=== PATIENT | male | born 1940 | race Caucasian/White ===

== ENCOUNTER 2024-10-23 12:05 | Inpatient (IN) | payer MEDICARE, SELFPAY ==
[2024-10-23] VITALS (11 sets, daily range): BP systolic 112–149; BP diastolic 56–85; PULSE 61–76; BMI 22.6; BMI 21.5
--- NOTE | 2024-10-23 07:55 | ED.GENMED ---
History of Present Illness
General
Chief Complaint: Rectal Bleeding
Source: patient
Exam Limitations: none
Time Seen by Provider: 10/23/24 07:54
Nursing documentation reviewed up to this point in time: agreed with
History of Present Illness
History of Present Illness:
Note:
CHIEF COMPLAINT(S)
Rectal bleeding
HISTORY OF PRESENT ILLNESS
The patient is an 84-year-old male who reports experiencing significant rectal bleeding earlier today, primarily upon awakening, with an associated history of intermittent minor rectal bleeding for years. The bleeding today was more substantial than
in previous instances. The patient denies any active bleeding currently, noting only a trace of blood was visible earlier. He reports no pain associated with the bleeding. The patient recalls having a bowel movement prior to the onset of todays
bleeding, but it is not clear if the bleeding was directly related to the bowel movement. The patient awakened to the bleeding episode.
The patient has a history of atrial fibrillation and had been on anticoagulation medication, although he reports withholding the medication on his own recently. He does not recall having atrial fibrillation after his last medical follow-ups. The
patient mentioned a history of a heart attack occurring in 2018. He denies any discomfort beyond a sensation of pressure during todays examination and reports no significant findings from similar past medical episodes.
PHYSICAL EXAM
General: Alert, no acute distress.
Skin: Warm, dry.
Head: Normocephalic, atraumatic.
Neck: Supple, trachea midline.
Eye Ears, nose, mouth and throat: Oral mucosa moist.
Cardiovascular: Normal peripheral perfusion, No edema.
Respiratory: Respirations are non-labored.
Gastrointestinal: Abdomen nondistended. RECTAL: guaiac po brown stool
Back: Normal range of motion, Normal alignment.
Musculoskeletal: Normal range of motion, normal strength.
Neurological: Alert and oriented to person, place, time, and situation, No focal neurological deficit observed.
Psychiatric: Cooperative, appropriate mood & affect.
PLAN
The plan is to admit the patient to the hospital for overnight due to the recent significant rectal bleeding episode. Monitoring will include watching for any further bleeding and evaluating blood count levels. The patients anticoagulation
medication, likely either Eliquis or Xarelto, will be withheld for the time being to prevent any exacerbation of bleeding. Further evaluation and diagnostic testing will be dependent on the patients status and any changes in his condition overnight.
DIFFERENTIAL DIAGNOSIS
The Differential Diagnosis includes, in no particular order and is not limited to:
1. Hemorrhoids
2. Diverticulosis
3. Gastrointestinal malignancy
4. Anal fissures
5. Colorectal polyps
6. Upper gastrointestinal bleeding
7. Ischemic colitis
8. Anticoagulation-related bleeding
9. Rectal varices
10. Inflammatory bowel disease (e.g., Crohns disease, ulcerative colitis)
CARE-UPDATE
10/23/24 - 08:26
The patients hemoglobin level has decreased from 12.9 in 2020 to 10.7, indicating a possible exacerbation of bleeding. Xarelto will be held to mitigate bleeding risk. The patient will be admitted to hospitalist for further monitoring and supportive
care. The etiology of rectal bleeding remains unclear, though diverticulosis is considered a possibility.
Disposition:
SUMMARY OF ENCOUNTER
The patient, an 84-year-old male, presented to the emergency department with a complaint of significant rectal bleeding that occurred earlier today, with a history of intermittent minor rectal bleeding over the years. The patient was evaluated for
potential sources of bleeding. Observational admission was decided upon to monitor for any recurrence or exacerbation, in light of his history of anticoagulation therapy, which he withheld.
DISPOSITION
Admit
ASSESSMENT
Significant rectal bleeding with a possibility of exacerbation due to prior anticoagulation therapy.
PLAN
Admit the patient for overnight observation to monitor for further bleeding episodes and evaluate blood count levels. Anticoagulation medication will be withheld to prevent exacerbation of bleeding. Further evaluation and diagnostic testing will
depend on changes in the patients condition overnight.
INDEPENDENT REVIEW OF LABS AND INTERPRETATION OF TESTS
My independent review reveals that the patients hemoglobin level has decreased from 12.9 in 2020 to 10.7, suggesting possible exacerbation of bleeding.
MEDICATION RECONCILIATION
The decision was made to withhold the patients anticoagulation medication, likely rivaroxaban (Xarelto), to reduce the risk of further bleeding.
MEDICAL DECISION MAKING
- Number and Complexity of Problems Addressed: Chronic conditions affecting care include the patient�s history of atrial fibrillation, previous heart attack, and the recent episode of rectal bleeding.
- Differential Diagnosis: Hemorrhoids, Diverticulosis, Gastrointestinal malignancy, Anal fissures, Colorectal polyps, Upper gastrointestinal bleeding, Ischemic colitis, Anticoagulation-related bleeding, Rectal varices, Inflammatory bowel disease.
- Data:
- Category 1: Reviewed the patients hemoglobin levels indicating a decrease associated with bleeding.
- Category 2: Not applicable.
- Category 3: Discussion with the admitting team for hospital observation.
- Risk: Hospital admission is required for monitoring due to risk associated with prior anticoagulation therapy and significant bleeding history.
DIAGNOSIS
Additional blood use (ICD-10: K92.1)
Anticoagulation therapy complication (ICD-10: T45.515A)
History of atrial fibrillation (ICD-10: I48.91)
Past History
Past History
ED Past Medical History: CAD and Other (bph)
ED Past Surgical History: Cardiac and Orthopedic
Social History
Tobacco: Former smoker
Alcohol: None
Personal:
Living: with family
Phy Exam
Physical Exam
Physical Exam:
.
Course
Orders/Labs/Results
Orders:
Orders
10/23/24 07:54
Cardiac Monitoring- Treatment ONCE
IV Insert/Care/Rem.- Treatment PRN
Pulse Ox/cont/shift [RESP] Stat
Quantity: 1
10/23/24 08:03
Type+Screen Urgent
Basic Metabolic Panel Urgent
Complete Blood Count/With Diff Urgent
PTT Urgent
Prothrombin Time Urgent
Abnormal Lab Results
10/23/24
08:03
RBC 4.34 L 10^6/uL
(4.70-6.10)
Hgb 10.7 L g/dL
(13.0-18.0)
Hct 34.3 L %
(39.0-52.0)
MCV 79.0 L fL
(80.0-94.0)
MCH 24.7 L pg
(27.0-31.0)
MCHC 31.2 L g/dL
(33.0-37.0)
RDW 17.6 H %
(11.5-14.5)
Absolute Lymphs (auto) 1.0 L 10^3/uL
(1.2-3.4)
Lymphocytes % 19.0 L %
(20.5-51.1)
PT 22.1 H Sec
(11.4-14.6)
APTT 38.5 H Sec
(23.4-35.0)
Chloride 110 H mmol/L
(98-107)
Glucose 111 H mg/dl
(70-99)
10/23/24 08:03
10/23/24 08:03
Vital Signs
Initial and Last Documented VS:
Initial Vital Signs
Temp Pulse Resp BP Pulse Ox
97.7 F 58 16 149/85 99
10/23/24 07:21 10/23/24 07:21 10/23/24 07:21 10/23/24 07:21 10/23/24 07:21
Last Documented Vital Signs
Temp Pulse Resp BP Pulse Ox
97.7 F 58 16 149/85 97
10/23/24 07:21 10/23/24 07:21 10/23/24 07:21 10/23/24 07:21 10/23/24 08:00
*Pulse Oximetry
SaO2: 99
Oxygen Mode of Delivery: Room air
Patient hypoxic: no
*Critical Care Note
Total Time (30-74mins, 75-104mins- exclusive of procedures): Not Applicable
ED Attending Note
-
Portions of this chart may have been created with voice recognition software.� Occasional wrong word or��sound alike� substitutions may have occurred due to the inherent limitations of voice recognition software.
Discharge Plan
Departure
Patient Disposition: Admit
Date of Disposition: 10/23/24
Time of Disposition: 08:32
Admit to: Telemetry
Presentation/result/management discussed w/ accepting MD/DO: Hospitalist
Patient with high blood pressure during this ER visit?: Yes
Condition: Fair
Discharge Problem:
Rectal bleeding
Prescriptions:
No Action
multivitamin [Yaf-Wthlql-Zyrxj] 1 EACH tablet
1 tab PO DAILY
ascorbic acid (vitamin C) [Vitamin C] 1,000 MG tablet
1,000 mg PO DAILY
docosahexaenoic acid-epa 1 CAP capsule
1 cap PO DAILY
coenzyme K38-ybtmowy E 1 CAP capsule
1 cap PO DAILY
saw-vit E-sod ntu-keo-atry-pyg [Prostate Health] 1 EACH tablet
1 tab PO DAILY
atorvastatin 80 MG tablet
80 mg PO QPM Qty: 30 3RF
carvedilol 6.25 MG tablet
6.25 mg PO BID Qty: 60 3RF
clopidogrel 75 MG tablet
75 mg PO DAILY Qty: 30 3RF
pantoprazole 40 MG tablet,delayed release (DR/EC)
40 mg PO DAILY Qty: 30 0RF
rivaroxaban [Xarelto] 15 MG tablet
15 mg PO QPM Qty: 30 2RF
Rx Instructions:
start at dinner time on 06/24/17
nitroglycerin 0.4 MG tablet, sublingual
0.4 mg sublingual [id number] PRN (Reason: chest pain ) 30 Days Qty: 25 0RF
Patient Comments:
took 2 doses about 30 mins apart 12/22/17
sacubitril-valsartan [Entresto] 1 EACH tablet
1 ea PO DAILY
Patient Comments:
verify dose with
furosemide [Lasix] 20 MG tablet
20 mg PO DAILY 30 Days Qty: 30 5RF
Referrals:
UNKNOWN - PT DOES,NOT KNOW [Unknown Provider]
Interventions
Interventions:
*Risk Screen - Suicide Last Done: 10/23/24 07:19
*General Assessment Last Done: 10/23/24 07:19
*Neglect/Abuse Screening Last Done: 10/23/24 07:19
ED- Pulmonary Assessment Last Done: 10/23/24 08:00
Discharge Date and Time
Print Language: [place] CITIZ[place]
[2024-10-23 08:16] LABS: Hematocrit 34.3 % (39.0-52.0); Hemoglobin 10.7 g/dL (13.0-18.0); Mean Corp Hgb Conc. 31.2 g/dL (33.0-37.0); Mean Corpuscular Volume 79.0 fL (80.0-94.0); Nucleated Red Blood Cells % 0 % (-); Platelet Count 214 10^3/uL (130-400); Red Cell Dist. Width 17.6 % (11.5-14.5)
[2024-10-23 08:34] LABS: INR 1.91; PT 22.1 Sec (11.4-14.6)
[2024-10-23 08:35] LABS: APTT 38.5 Sec (23.4-35.0)
[2024-10-23 08:40] LABS: Blood Urea Nitrogen 19 mg/dl (9-20); Calcium 9.5 mg/dl (8.4-10.2); Carbon Dioxide 27 mmol/L (22-30); Chloride 110 mmol/L (98-107); Estimated Creatinine Clearance 49 ml/min; Glucose 111 mg/dl (70-99); Potassium 4.3 mmol/L (3.5-5.1); Sodium 140 mmol/L (135-145); eGFR > 60.00
--- NOTE | 2024-10-23 10:32 | HPS.HSE ---
Family Physician
-
Family Physician: Lexie Rueda MD
Chief Complaint
-
Bright red blood per rectum
History of Present Illness
This is an 84-year-old male with past medical history of CAD/SC s/p stents (May 2017), paroxysmal atrial fibrillation on Xarelto, ischemic cardiomyopathy, hyperlipidemia, colonic polyps who presents to the ED complaining of significant bright red
rectal bleeding upon awakening this morning at 6am.� The patient reports he has had an history of intermittent minor bright red rectal bleeding ongoing for 20 years.� He reports today's bleeding was more voluminous than previous episodes.He does not
follow GI as an outpatient, but reports he had a sigmoidoscopy done in 2018. � At bedside, he denies active bleeding episode.� He reports the bleeding episode resolved on its own this morning.� He reports he had a bowel movement last night before
bed, but denied blood in the stool. He states he last took his Xarelto dosage last night. He denies symptomatic chest pain, shortness of breath.�
Upon presentation to the ED, blood pressure 149/75, pulse 58, temperature 97.7, respiratory 16, O2 sat 99% on room air. �Laboratory showed hemoglobin 10.7, hematocrit 34.3, PT 22.1, PTT 38.5, INR 1.91, electrolytes normal.
Medical History
Past Medical History
Past Medical History: Reports Other (CAD s/p stents, paroxysmal atrial fibrillation, hyperlipidemia, ischemic cardiomyopathy, osteoarthritis)
Past Surgical History: Reports Orthopedic and Other (Cardiac catheterization, hernia repair)
Social History
Tobacco: Former Smoker
Alcohol: None
Drug: None
Personal:
Living: With Family
Family History
Family History: Not pertinent
Allergies / Home Medications
Allergies reflects when Allergies were last updated in [facility].
Home Medications with original date entered in [facility]
Allergy/Medication List:
Allergies
Allergy/AdvReac Type Severity Reaction Status Date / Time
No Known Allergies Allergy Verified 10/23/24 07:19
Home Medications
ascorbic acid (vitamin C) 1,000 mg tablet (Vitamin C) 1,000 mg PO DAILY 06/19/17
coenzyme V30-bfjnwxr E 100 mg-100 unit capsule 1 cap PO DAILY 06/19/17
multivitamin (Rnn-Lltejd-Vipjt tablet) 1 tab PO DAILY 06/19/17
saw palm 160 mg-vit E 100 unit-selen 100 nmj-tuqn-vlyekp-pygeum tablet (Prostate Health) 1 tab PO DAILY 06/19/17
atorvastatin 80 mg tablet 80 mg PO QPM ##30 06/23/17
carvedilol 6.25 mg tablet 6.25 mg PO BID ##60 06/23/17
clopidogrel 75 mg tablet 75 mg PO DAILY ##30 06/23/17
nitroglycerin 0.4 mg sublingual tablet 0.4 mg sublingual [id number] PRN chest pain 30 days #25 tabs 06/23/17
pantoprazole 40 mg tablet,delayed release 40 mg PO DAILY ##30 06/23/17
rivaroxaban 15 mg tablet (Xarelto) 15 mg PO QPM #30 tabs 06/23/17
sacubitril 49 mg-valsartan 51 mg tablet (Entresto) 1 ea PO DAILY 12/23/17
furosemide 20 mg tablet (Lasix) 20 mg PO DAILY 30 days #30 tabs 12/25/17
Review of Systems
-
A 12 point ROS was completed and negative except as noted: Yes
Constitutional: Reports Other (All review of systems obtained and negative except as documented in HPI)
Physical Exam
Vital Signs
Vital Signs
Temp Pulse Resp BP Pulse Ox
97.7 F 54 15 147/75 99
10/23/24 07:21 10/23/24 10:00 10/23/24 10:00 10/23/24 10:00 10/23/24 10:00
Physical Exam
General: Well Developed, Well Nourished and No Apparent Distress
Respiratory: Clear
Cardiac: S1/S2 and Regular Rhythm
GI: Soft, Non Tender, Non Distended and Normal Bowel Sounds
Musculoskeletal: No Edema
Skin: Warm and Dry
Neuro: Awake, Alert, Oriented and AO x 3
Psych: Calm
Laboratory Results
-
10/23/24 08:03
10/23/24 08:03
Laboratory Results
PT 22.1 Sec (11.4-14.6) H 10/23/24 08:03
INR 1.91 10/23/24 08:03
APTT 38.5 Sec (23.4-35.0) H 10/23/24 08:03
Impression/Plan
-
Assessment/plan
#Acute on chronic lower GI bleed likely secondary to diverticulosis vs colonic polyps vs anticoagulated related bleeding
-Denies overt bleeding at bedside
-Monitor H&H Q12
-IV pantoprazole
-Keep NPO
-Type and screen, Consent in chart
-GI consult
-Hold Xarelto
#Acute on chronic anemia secondary to GI bleed
-Denies chest pain, shortness of breath, palpitation
-Monitor H&H
-Check iron studies
-Transfuse for Hgb less than 8
#Paroxysmal atrial fibrillation
-Continue rate control with Coreg
-Hold anticoagulation with Xarelto
#CAD s/p stents
-Continue statin, hold clopidogrel
#Ischemic cardiomyopathy
#CHF
-Continue Coreg, Entresto
-Continue home Lasix
#Hyperlipidemia
-Continue statin
CODE STATUS DNR
DVT prophylaxis SCDs for now
--- NOTE | 2024-10-23 11:14 | W.PN.UPDATE ---
Update Note
Progress Note Update
I personally performed a history and physical exam of the patient and discussed management with the resident. I reviewed the resident's note and agree with the documented findings and plan of care HPI/CC.
84-year-old male presents with an episode of bright red blood per rectum this morning. Denies abdominal pain. Was in his usual state of health prior to the episode. No acute complaints at this moment.
147/75, 54, 15, 97.7 �F, 99% RA
Gen: NAD, AAOx3.
Eyes: EOMI, PERRLA, no scleral icterus.
Neck: supple.
CV: RRR, +S1/S2, no m/r/g.
Resp: CTAB, no rales, wheezes, or rhonchi.
Abd: +BS, soft, NT, ND
Skin: No rashes.
Neuro: CN 2-12 intact, non-focal.
Psych: Normal mood and affect.
Allergies
Allergy/AdvReac Type Severity Reaction Status Date / Time
No Known Allergies Allergy Verified 10/23/24 07:19
Home Medications
ascorbic acid (vitamin C) 1,000 mg tablet (Vitamin C) 1,000 mg PO DAILY 06/19/17
coenzyme C68-fnghidq E 100 mg-100 unit capsule 1 cap PO DAILY 06/19/17
multivitamin (Cpu-Ucasce-Evafw tablet) 1 tab PO DAILY 06/19/17
saw palm 160 mg-vit E 100 unit-selen 100 deg-zubu-wildni-pygeum tablet (Prostate Health) 1 tab PO DAILY 06/19/17
atorvastatin 80 mg tablet 80 mg PO QPM ##30 06/23/17
carvedilol 6.25 mg tablet 6.25 mg PO BID ##60 06/23/17
clopidogrel 75 mg tablet 75 mg PO DAILY ##30 06/23/17
nitroglycerin 0.4 mg sublingual tablet 0.4 mg sublingual [id number] PRN chest pain 30 days #25 tabs 06/23/17
pantoprazole 40 mg tablet,delayed release 40 mg PO DAILY ##30 06/23/17
rivaroxaban 15 mg tablet (Xarelto) 15 mg PO QPM #30 tabs 06/23/17
sacubitril 49 mg-valsartan 51 mg tablet (Entresto) 1 ea PO DAILY 12/23/17
furosemide 20 mg tablet (Lasix) 20 mg PO DAILY 30 days #30 tabs 12/25/17
Lab Results
10/23/24 10/23/24
08:03 10:13
WBC 5.4
RBC 4.34 L
Hgb 10.7 L
Hct 34.3 L
MCV 79.0 L
MCH 24.7 L
MCHC 31.2 L
RDW 17.6 H
Plt Count 214
MPV 9.8
Abs Immat Gran (auto) 0.0
Absolute Neuts (auto) 3.7
Absolute Lymphs (auto) 1.0 L
Absolute Monos (auto) 0.4
Absolute Eos (auto) 0.3
Absolute Basos (auto) 0.1
Immature Gran % 0.2
Neutrophils % 68.1
Lymphocytes % 19.0 L
Monocytes % 7.2
Eosinophils % 4.6
Basophils % 0.9
Nucleated RBC % 0
PT 22.1 H
INR 1.91
APTT 38.5 H
Sodium 140
Potassium 4.3
Chloride 110 H
Carbon Dioxide 27
BUN 19
Creatinine 1.0
Estimated Creat Clear 49
eGFR > 60.00
Glucose 111 H
Calcium 9.5
Blood Type A POS
Blood Type Confirm A POS
Antibody Screen Negative
Acute blood loss anemia due to LGIB:
-Exacerbated by Xarelto and Plavix, hold both
-NPO for now
-Type and screen sent, will obtain consent for blood products
-2 large bore IVs
-OK to recheck Hb this evening and tomorrow AM unless pt has recurrent bleeding before this evening
-if recurrent bleeding, check CTA A/P
-c/s GI
Other problems:
CAD/OR s/p stents (May 2017): Holding Plavix with GIB. Cont statin/BB
CHF (unknown type): cont Entresto/BB/Lasix
PAF: holding Xarelto, cont BB
HLD: cont statin
h/o colonic polyps
DNR/SCDs
--- NOTE | 2024-10-23 11:35 | CM ---
CM reviewed chart and met with pt and bedside in ED. Lives with in ranch style home, [address].
Independent in ADLs, personal care and ambulation at baseline, no assistive devices. Still drives.
Confirms prescription coverage.
No hx VN or SNF.
PCP: Lexie uReda
Pharmacy: [facility]
Anticipate discharge home, CM will continue to follow for any discharge planning needs.
[2024-10-23 11:47] LABS: Reticulocyte Count 1.0 % (0.4-2.8)
[2024-10-23 11:53] LABS: Iron 28 ug/dl (49-181)
[2024-10-23 12:03] LABS: Total Iron Binding Capacity 358 ug/dl (261-462)
[2024-10-23 12:29] LABS: Ferritin 7.0 ng/ml (17.9-464.0)
--- NOTE | 2024-10-23 14:14 | CON.GI ---
Consultation
-
Date/Time Consultation Requested: 10/23/24 11:43am
Date/Time Consultation Performed: 10/23/24 2:14pm
Requesting Provider: Karishma Lopez
Performing Provider: Stephen Terrell
Reason for Consultation: Rectal bleeding
Medical History
Chief Complaint / HPI
Chief Complaint: Rectal bleeding
History of Present Illness:
Patient is an 84-year-old male who presents with rectal bleeding. He has noted off-and-on bleeding per rectum over the years but the amount he saw today was significant with clots. He denies any abdominal pain, diarrhea, change in bowel habits,
weight loss. He was admitted to the hospital in 2018 for acute coronary syndrome and had stents placed. During that admission he had rectal bleeding which was evaluated with a flexible sigmoidoscopy. He had several large polyps found and was
recommended to have them resected when he was able to hold his Plavix safely. Since then he decided against pursuing resection given his age and lack of symptoms other than the episodic bleeding. He is on xarelto and took last dose 10/22 pm.
Plavix is listed on his hospital chart but he has a list of current meds that does not include plavix.
Past Medical History
Past Medical History: Arrhythmias (atrial fibrillation) and CAD
Past Surgical History: Other (hernia)
Social History
Tobacco: Former Smoker
Alcohol: None
Family History
Family History: Reviewed & Not Pertinent
Allergies / Home Medications
Allergy/AdvReac Type Severity Reaction Status Date / Time
No Known Allergies Allergy Verified 10/23/24 07:19
�Medication �Instructions �Recorded
ascorbic acid (vitamin C) 1,000 mg 1,000 mg PO DAILY 06/19/17
tablet (Vitamin C)
coenzyme P52-vwextet E 100 mg-100 1 cap PO DAILY 06/19/17
unit capsule
multivitamin (Luv-Dynhcf-Afkhg 1 tab PO DAILY 06/19/17
tablet)
saw palm 160 mg-vit E 100 1 tab PO DAILY 06/19/17
unit-selen 100
fyi-zlbo-odzmra-pygeum tablet
(Prostate Health)
atorvastatin 80 mg tablet 80 mg PO QPM ##30 06/23/17
carvedilol 6.25 mg tablet 6.25 mg PO BID ##60 06/23/17
clopidogrel 75 mg tablet 75 mg PO DAILY ##30 06/23/17
nitroglycerin 0.4 mg sublingual 0.4 mg sublingual [id number] PRN 06/23/17
tablet chest pain 30 days #25 tabs
pantoprazole 40 mg tablet,delayed 40 mg PO DAILY ##30 06/23/17
release
rivaroxaban 15 mg tablet (Xarelto) 15 mg PO QPM #30 tabs 06/23/17
sacubitril 49 mg-valsartan 51 mg 1 ea PO DAILY 12/23/17
tablet (Entresto)
furosemide 20 mg tablet (Lasix) 20 mg PO DAILY 30 days #30 tabs 12/25/17
Review of Systems
-
All other systems: A 12 pt ROS was Negative except as stated above in HPI
Vital Signs
Temp Pulse Resp BP Pulse Ox
97.7 F 55 16 142/79 99
10/23/24 07:21 10/23/24 13:30 10/23/24 13:30 10/23/24 13:00 10/23/24 13:30
Physical Exam
Exam
General: No Apparent Distress
HEENT: Normocephalic and Atraumatic
Respiratory: Non Labored Respirations
GI: Soft, Non Tender and Non Distended
Rectal: Brown and Hem Positive
Results
WBC 5.4 10^3/uL (4.8-10.8) 10/23/24 08:03
Hgb 10.7 g/dL (13.0-18.0) L 10/23/24 08:03
Hct 34.3 % (39.0-52.0) L 10/23/24 08:03
MCV 79.0 fL (80.0-94.0) L 10/23/24 08:03
Plt Count 214 10^3/uL (130-400) 10/23/24 08:03
Absolute Neuts (auto) 3.7 10^3/uL (1.4-6.5) 10/23/24 08:03
PT 22.1 Sec (11.4-14.6) H 10/23/24 08:03
INR 1.91 10/23/24 08:03
APTT 38.5 Sec (23.4-35.0) H 10/23/24 08:03
Sodium 140 mmol/L (135-145) 10/23/24 08:03
Potassium 4.3 mmol/L (3.5-5.1) 10/23/24 08:03
Chloride 110 mmol/L (98-107) H 10/23/24 08:03
Carbon Dioxide 27 mmol/L (22-30) 10/23/24 08:03
BUN 19 mg/dl (9-20) 10/23/24 08:03
Creatinine 1.0 mg/dL (0.7-1.3) 10/23/24 08:03
Calcium 9.5 mg/dl (8.4-10.2) 10/23/24 08:03
Diagnostic Image Results:
Prior GI Procedures:
EGD:
Colonoscopy:
Assessment / Plan
-
Summary: 84yo male presents with significant rectal bleeding with history of intermittent rectal bleeding over the years. He is on xarelto for afib, last dose 10/22 pm. He had AMI in 2018 requiring stent. During that admission had rectal bleeding
and flex sig showed: 8mm polyp @30cm, 25-30mm polyp @28cm, 25-30mm polyp @15cm, 6mm rectal polyp, hemorrhoids. He was recommended to have colonoscopy to resect polyps when he could safely hold plavix. He never returned to f/u for colonoscopy
since he was asymptomatic and did not wish to pursue at his age.
Impression:
Rectal bleeding
Large rectosigmoid polyps on flex sig 2018. Polyps at 15cm and 28cm from anus were friable and likely source for bleeding at that time.
Afib on Xarelto, last dose 8/23pm
CAD/stent in 2018. Not on plavix currently
Recommendations:
Rectal bleeding is likely from the large rectosigmoid polyps at 15cm and 28cm from the anus on flex sig in 2018
I asked if pt would get surgery if these turned out to be cancerous since it has been over 7 years- he thinks probably not, but would like to pursue colonoscopy to determine source of bleeding
Hold xarelto
Plan colonoscopy Thursday after 48 hour wash out
OK for clears for now
-
-
Thank you for consultation and allowing me to participate in the patient's care. Please call the wildlife control agent GI physician during the after hours with any questions or concerns.
[2024-10-23] MEDS: NSS (PRESERVATIVE FREE) 10 ML IV (14:18)
[2024-10-23] MEDS: PROTONIX IV 40 MG IV (14:19)
[2024-10-23] MEDS: LIPITOR 80 MG PO (17:32)
[2024-10-23 18:08] LABS: Hematocrit 32.6 % (39.0-52.0); Hemoglobin 10.1 g/dL (13.0-18.0)
--- NOTE | 2024-10-23 18:23 | W.PN.UPDATE ---
Update Note
Progress Note Update
Verified with patient if he takes Entresto at home. Per daughter (who is a nurse here at ),'unsure if patient takes medication at home but would go home to check medication pile'. Daughter returned reporting she did not find bottle of Entresto.
Patient's primary supervisor irrigation is Dr Damon. Reviewed outpatient [facility] records and progress notes, No mention of Entresto. Most recent visit 12/17/2023. At this time will hold Entresto until full clarification in the AM.
Also, patient DOES NOT take Plavix at home. Will d/c order
[2024-10-23] MEDS: COREG 6.25 MG PO (20:25)
[2024-10-24 03:40] VITALS: BP 115/71; BP 119/71; BP 130/70; PULSE 58; PULSE 67; PULSE 73
--- NOTE | 2024-10-24 06:47 | W.PN.HOSP.TC ---
Addendum entered and electronically signed by Domenico Pham MD 10/24/24 20:55:
Attending Addendum-
I saw and evaluated the patient. I reviewed the resident�s note and agree with findings and plan as documented in the resident�s note. Sub: Denies having BM's. No complaints. States he feels good and is ready to get out of here. Full 12 point ROS
reviewed and negative except as documented Exam: Vitals reviewed in chart GEN-NAD heart RRR lungs clear abd soft NT ND pos BS LE no edema
Plan:
#Acute on chronic lower GI bleed
- no overt bleeding
- H&H stable
- cont IV pantoprazole
- Keep NPOpMN
- Type and screen, Consent in chart
- appreciate GI input- colonoscopy in am
- Hold Xarelto
- h/o polyps
#DARWIN
-Monitor H&H
-start IV iron
-Transfuse for Hgb less than 7
#Paroxysmal atrial fibrillation
-Continue rate control with Coreg
-Hold anticoagulation with Xarelto
#CAD s/p stents
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
#Ischemic cardiomyopathy
#HFrEF
- not in AE
- Echo- 03/2023- EF 30-35%
- Continue Coreg
- d/w primary cards re starting GDMT on DC
- Continue home Lasix
#Hyperlipidemia
-Continue atorvastatin
CODE STATUS DNR
DVT prophylaxis SCDs for now
ACP
Patient consented to discuss, was alone, time spent explanation of advance directives, changes in health status, patient�s health care wishes if the patient becomes unable to make health decisions, goals of care, code status, and prognosis 'i dont
want any heroic stuff'- 16 minutes
Time spent coordinating care, review of plan of care with resident, personally reviewed previous records in EMR, med rec, labs, radiology, d/w nursing, total time documented is exclusive of any additional time listed that was spent in advance care
planning discussion -�51 minutes
Original Note:
Today's Communication/Plan
-
Continue IV Protonix, continue clear liquid diet, watch for any stools, iron supplementation
Assessment / Plan
Assessment / Plan
Assessment:
84-year-old male with a past medical history of CAD/PR status post stents, paroxysmal A-fib on Xarelto, ischemic cardiomyopathy, hyperlipidemia, and colonic polyps presented to the ED due to significant bright red rectal bleeding yesterday morning.
He has had a history of intermittent rectal bleeding however at this time it was much more. He has not had any further bowel movement since. In the ED his hemoglobin was around 10.7. Xarelto was held, started on IV pantoprazole, and was seen by
GI. He is scheduled for colonoscopy tomorrow for further workup however his bleeding is most likely found to be due to polyps that were seen in 2018.
Plan:
#Acute blood loss anemia due to lower GI bleed:
-Continue clear liquid diet
-Colonoscopy Thursday after 48 hour wash out
-GI following, input appreciated
-Continue IV Protonix
-Hemoglobin has remained stable, today was 10.5
-Transfuse Hgb<7
-Continue checking CBC, monitor for any blood in stool. No bowel movements so far
# Iron deficiency anemia
-Very low iron levels as well as low ferritin levels
-Will start IV iron infusion
-PO iron supplementation
#CAD/PR s/p stents
-Holding Xarelto, will continue statin and Metoprolol
#Systolic CHFrEF
-Reviewed old Cardiology note from Jan 2024, systolic HF noted with reduced EF (30-35%)
-Continue Lasix and BB
#Proxysmal A-Fib
-Continue Metoprolol
-Holding Xarelto
#Hyperlipidemia
-Continue Statin
Code Status: DNR
DVT Prophylaxis: SCDs
Anticipated Discharge: 24 - 48 hours
Subjective/Interval History
-
Date of Service: October 24, 2024
Patient seen this morning around 7:30 AM, reports feeling well. Has not had a bowel movement yet as he has only been on a clear liquid diet. Has not had any instances of lightheadedness, headaches, shortness of breath, nausea, vomiting. Overall
just awaiting the colonoscopy scheduled for tomorrow.
Objective Data
-
Labs:
Laboratory Results
10/24/24
06:00
WBC Pending
Hgb Pending
Hct Pending
Plt Count Pending
Sodium Pending
Potassium Pending
Chloride Pending
Carbon Dioxide Pending
BUN Pending
Creatinine Pending
Glucose Pending
Calcium Pending
Total Bilirubin Pending
AST Pending
ALT Pending
Alkaline Phosphatase Pending
Vital Signs:
Vital Signs
Temp Pulse Resp BP Pulse Ox
97.8 F 65 18 118/65 96
10/24/24 03:40 10/23/24 20:25 10/24/24 03:40 10/23/24 20:25 10/24/24 03:40
I&O
10/22/24 10/23/24 10/24/24
06:59 06:59 06:59
Intake Total 240 / 240
Balance 240 / 240
Review of Systems
-
History Source: Patient
Constitutional: Reports No Symptoms
EENT: Reports No Symptoms Reported
Respiratory: Reports No Symptoms
Cardiac: Reports No Symptoms
Abdomen/GI: Denies Abdominal Pain, Nausea or Vomiting
Musculoskeletal: Reports No Symptoms
Skin: Reports No Symptoms
Neuro: Reports No Symptoms
Endocrine: Reports No Symptoms
Hematologic / Lymphatic: Reports No Symptoms
Allergy / Immunology: Reports No Symptoms
Physical Exam
-
General: Well Developed, No Apparent Distress and Comfortable
HEENT: Normocephalic, Atraumatic and Moist Mucous Membranes
Respiratory: Clear to Auscultation
Cardiac: Regular Rhythm and S1/S2; Negative Murmur, Rub or Gallop
GI: Soft, Nontender, Nondistended and Normal Bowel Sounds
Musculoskeletal: No Clubbing, No Cyanosis and No Edema
Skin: Negative Rash
Neuro: Nonfocal/Grossly Intact
Psych: Calm
Data Reviewed
-
Labs: Labs Reviewed by me
[2024-10-24 07:20] VITALS: BP 125/73; BP 139/78; BP 142/75; PULSE 62; PULSE 63; PULSE 71
[2024-10-24 07:39] LABS: Hematocrit 33.7 % (39.0-52.0); Hemoglobin 10.5 g/dL (13.0-18.0); Mean Corp Hgb Conc. 31.2 g/dL (33.0-37.0); Mean Corpuscular Volume 79.7 fL (80.0-94.0); Nucleated Red Blood Cells % 0 % (-); Platelet Count 198 10^3/uL (130-400); Red Cell Dist. Width 17.4 % (11.5-14.5)
[2024-10-24 08:11] LABS: ALT (SGPT) 18 U/L (0-50); AST (SGOT) 24 U/L (17-59); Albumin 3.6 g/dl (3.5-5.0); Alkaline Phosphatase 82 U/L (38-126); Blood Urea Nitrogen 12 mg/dl (9-20); Calcium 9.6 mg/dl (8.4-10.2); Carbon Dioxide 26 mmol/L (22-30); Chloride 110 mmol/L (98-107); Estimated Creatinine Clearance 52 ml/min; Glucose 88 mg/dl (70-99); Potassium 4.6 mmol/L (3.5-5.1); Sodium 140 mmol/L (135-145); Total Protein 5.9 g/dl (6.3-8.2); eGFR > 60.00
[2024-10-24] MEDS: VITAMIN C 1000 MG PO (09:28)
[2024-10-24] MEDS: NSS (PRESERVATIVE FREE) 10 ML IV (09:28)
[2024-10-24] MEDS: PROTONIX IV 40 MG IV (09:28)
[2024-10-24] MEDS: COREG 6.25 MG PO ×2 (09:28→20:01)
[2024-10-24] MEDS: LASIX PO (09:29)
--- NOTE | 2024-10-24 11:00 | W.PN.GI.CBS2 ---
Today's Communication / Plan
-
Prep for colonoscopy tomorrow
Hold xarelto
Evaluate large polyps seen in rectosigmoid in 2018. Can attempt resection if not invading wall, but may be malignant after 7 years
Assessment / Plan
-
Summary: 84yo male presents with significant rectal bleeding with history of intermittent rectal bleeding over the years. He is on xarelto for afib, last dose 10/22 pm. He had AMI in 2018 requiring stent. During that admission had rectal bleeding
and flex sig showed: 8mm polyp @30cm, 25-30mm polyp @28cm, 25-30mm polyp @15cm, 6mm rectal polyp, hemorrhoids. He was recommended to have colonoscopy to resect polyps when he could safely hold plavix. He never returned to f/u for colonoscopy
since he was asymptomatic and did not wish to pursue at his age.
Impression:
Rectal bleeding
Large rectosigmoid polyps on flex sig 2018. Polyps at 15cm and 28cm from anus were friable and likely source for bleeding at that time.
Afib on Xarelto, last dose 10/22pm
CAD/stent in 2018. Not on plavix currently
Subjective
Subjective
Date of Service: October 24, 2024
No bleeding overnight
Objective
Data Reviewed
Laboratory Data:
Laboratory Results
10/24/24 06:48
10/24/24 06:48
Laboratory Results
PT 22.1 Sec (11.4-14.6) H 10/23/24 08:03
INR 1.91 10/23/24 08:03
APTT 38.5 Sec (23.4-35.0) H 10/23/24 08:03
Total Bilirubin 0.8 mg/dl (0.2-1.3) 10/24/24 06:48
AST 24 U/L (17-59) 10/24/24 06:48
ALT 18 U/L (0-50) 10/24/24 06:48
Alkaline Phosphatase 82 U/L (38-126) 10/24/24 06:48
Vital Signs and I&O:
Vital Signs
Temp Pulse Resp BP Pulse Ox
97.3 F 62 18 139/78 95
10/24/24 07:20 10/24/24 07:20 10/24/24 07:20 10/24/24 07:20 10/24/24 08:30
I&O
10/23/24 10/24/24 10/25/24
06:59 06:59 06:59
Intake Total 480 / 480
Balance 480 / 480
Physical Exam
Physical Exam
GI: Soft, Non Distended and Non Tender
[2024-10-24 11:08] VITALS: BP 119/69; BP 124/70; BP 127/76; PULSE 58; PULSE 62; PULSE 65
[2024-10-24] MEDS: FERRLECIT 110 MG IV (13:43)
[2024-10-24 15:20] VITALS: BP 124/72; BP 126/72; BP 134/70; PULSE 54; PULSE 61; PULSE 65
[2024-10-24] MEDS: LIPITOR 80 MG PO (17:13)
[2024-10-24] MEDS: NULYTELY SOLUTION 4 LITERS PO (17:13)
[2024-10-24 19:47] VITALS: BP 131/78
[2024-10-24 23:51] VITALS: BP 105/65
[2024-10-25] VITALS (9 sets, daily range): BP systolic 114–142; BP diastolic 64–87
--- NOTE | 2024-10-25 06:36 | PTCARENOTE ---
Pt aaox3 able to make his needs known.Denies pain.Pt completed the bowel prep overnight.NPO at this time.Pt having clear liquid yellow stools. Plan of care continued on pt.
[2024-10-25 07:52] LABS: Hematocrit 33.9 % (39.0-52.0); Hemoglobin 10.5 g/dL (13.0-18.0); Mean Corp Hgb Conc. 31.0 g/dL (33.0-37.0); Mean Corpuscular Volume 79.6 fL (80.0-94.0); Platelet Count 201 10^3/uL (130-400); Red Cell Dist. Width 17.3 % (11.5-14.5)
[2024-10-25 08:14] LABS: ALT (SGPT) 19 U/L (0-50); AST (SGOT) 24 U/L (17-59); Albumin 3.5 g/dl (3.5-5.0); Alkaline Phosphatase 100 U/L (38-126); Blood Urea Nitrogen 11 mg/dl (9-20); Calcium 9.7 mg/dl (8.4-10.2); Carbon Dioxide 26 mmol/L (22-30); Chloride 111 mmol/L (98-107); Estimated Creatinine Clearance 52 ml/min; Glucose 86 mg/dl (70-99); Potassium 4.3 mmol/L (3.5-5.1); Sodium 139 mmol/L (135-145); Total Protein 5.9 g/dl (6.3-8.2); eGFR > 60.00
[2024-10-25] MEDS: PROTONIX IV 40 MG IV (08:36)
[2024-10-25] MEDS: COREG 6.25 MG PO ×2 (08:36→19:39)
[2024-10-25] MEDS: NSS (PRESERVATIVE FREE) 10 ML IV (08:36)
[2024-10-25] MEDS: VITAMIN C 1000 MG PO (08:37)
[2024-10-25] MEDS: LASIX 20 MG PO (08:40)
--- NOTE | 2024-10-25 08:48 | W.PN.HOSP.TC ---
Addendum entered and electronically signed by Domenico Pham MD 10/25/24 19:39:
Attending Addendum-
I saw and evaluated the patient. I reviewed the resident�s note and agree with findings and plan as documented in the resident�s note. Sub: Seen post colonoscopy. Having multiple BM's unclear if bloody. Seen with daughter present. No complaints.
Very pleasant Full 12 point ROS reviewed and negative except as documented Exam: Vitals reviewed in chart GEN-NAD heart RRR lungs clear abd soft NT ND pos BS LE no edema
Plan:
#Acute on chronic lower GI bleed
- no overt bleeding
- H&H stable
- cont IV pantoprazole
- NPOpMN
- Type and screen, Consent in chart
- appreciate GI input
- colon 10/25-13 polyps removed and sent for path,
- repeat colonoscopy on 10/26 to remove remaining polyps
- Hold Xarelto restart 4 days post procedure per GI
#DARWIN
-Monitor H&H
-cont IV iron
-Transfuse for Hgb less than 7
#Paroxysmal atrial fibrillation
-Continue rate control with Coreg
-Hold anticoagulation with Xarelto
#CAD s/p stents
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
#Ischemic cardiomyopathy
#HFrEF
- not in AE
- Echo- 03/2023- EF 30-35%
- Continue Coreg
- d/w primary cards re starting GDMT on DC
- Continue home Lasix
#Hyperlipidemia
-Continue atorvastatin
CODE STATUS DNR
DVT prophylaxis SCDs for now
Dispo DC home in AM post procedure
Time spent coordinating care, review of plan of care with resident, personally reviewed records in EMR, med rec, consults, notes, labs, radiology, d/w nursing and POA � 51 mins
Original Note:
Today's Communication/Plan
-
-Colonoscopy today
-Restart Xarelto following colonoscopy
-Possible discharge in the afternoon
Assessment / Plan
Assessment / Plan
Assessment:
84-year-old male with a past medical history of CAD/MO status post stents, paroxysmal A-fib on Xarelto, ischemic cardiomyopathy, hyperlipidemia, and colonic polyps presented to the ED due to significant bright red rectal bleeding yesterday morning.
He has had a history of intermittent rectal bleeding however at this time it was much more. He has not had any further bowel movement since. In the ED his hemoglobin was around 10.7. Xarelto was held, started on IV pantoprazole, and was seen by
GI. He is scheduled for colonoscopy tomorrow for further workup however his bleeding is most likely found to be due to polyps that were seen in 2018. Scheduled for colonoscopy today
Plan:
#Acute blood loss anemia due to lower GI bleed:
-Successful bowel prep yesterday for colonoscopy today
-We will resume anticoagulation following colonoscopy
-GI following, input appreciated
-Continue IV Protonix
-Hemoglobin has remained stable, today was 10.5
-Transfuse Hgb<7
-Continue checking CBC, monitor for any blood in stool. Following bowel movements yesterday, had some red blood in the stool
# Iron deficiency anemia
-Received iron infusion yesterday
-PO iron supplementation
#CAD/MO s/p stents
-Holding Xarelto, will continue statin and Metoprolol
-Will resume Xarelto following colonoscopy
#Systolic CHFrEF
-Reviewed old Cardiology note from Jan 2024, systolic HF noted with reduced EF (30-35%)
-Continue Lasix and BB
#Proxysmal A-Fib
-Continue Metoprolol
-Holding Xarelto
#Hyperlipidemia
-Continue Statin
Code Status: DNR
DVT Prophylaxis: SCDs
Anticipated Discharge: Within 24 hours
Subjective/Interval History
-
Date of Service: October 25, 2024
Patient seen this morning before his colonoscopy, reports that he had no adverse events overnight. Reported that he did have multiple bowel movements yesterday but did not notice any blood tinge stools, other than some mild red blood that he
noticed. Overall had no complaints today
Objective Data
-
Labs:
Laboratory Results
10/25/24
06:37
WBC 5.4
Hgb 10.5 L
Hct 33.9 L
Plt Count 201
Sodium 139
Potassium 4.3
Chloride 111 H
Carbon Dioxide 26
BUN 11
Creatinine 0.9
Glucose 86
Calcium 9.7
Total Bilirubin 0.8
AST 24
ALT 19
Alkaline Phosphatase 100
Vital Signs:
Vital Signs
Temp Pulse Resp BP Pulse Ox
98.0 F 64 16 132/71 96
10/25/24 07:00 10/25/24 08:36 10/25/24 07:00 10/25/24 08:36 10/25/24 07:00
I&O
10/24/24 10/25/24 10/26/24
06:59 06:59 06:59
Intake Total 480 / 480 4440 / 4440
Balance 480 / 480 4440 / 4440
Review of Systems
-
History Source: Patient
Constitutional: Reports No Symptoms
EENT: Reports No Symptoms Reported
Respiratory: Reports No Symptoms
Cardiac: Reports No Symptoms
Abdomen/GI: Denies Abdominal Pain, Nausea or Vomiting
Musculoskeletal: Reports No Symptoms
Skin: Reports No Symptoms
Neuro: Reports No Symptoms
Endocrine: Reports No Symptoms
Hematologic / Lymphatic: Reports No Symptoms
Allergy / Immunology: Reports No Symptoms
Physical Exam
-
General: Well Developed, No Apparent Distress and Comfortable
HEENT: Normocephalic, Atraumatic and Moist Mucous Membranes
Respiratory: Clear to Auscultation
Cardiac: Regular Rhythm and S1/S2; Negative Murmur, Rub or Gallop
GI: Soft, Nontender, Nondistended and Normal Bowel Sounds
Musculoskeletal: No Clubbing, No Cyanosis and No Edema
Skin: Negative Rash
Neuro: Nonfocal/Grossly Intact
Psych: Calm
Data Reviewed
-
Labs: Labs Reviewed by me, Discussed with Physician, Discussed with Nurse and Discussed with Patient
[2024-10-25] MEDS: GAVILAX 119 GM PO (16:56)
[2024-10-25] MEDS: LIPITOR 80 MG PO (17:02)
[2024-10-26] VITALS (11 sets, daily range): BP systolic 15–139; BP diastolic 55–80; PULSE 78; O2SAT 95
[2024-10-26 07:41] LABS: Hematocrit 33.7 % (39.0-52.0); Hemoglobin 10.8 g/dL (13.0-18.0); Mean Corp Hgb Conc. 32.0 g/dL (33.0-37.0); Mean Corpuscular Volume 76.6 fL (80.0-94.0); Platelet Count 190 10^3/uL (130-400); Red Cell Dist. Width 17.2 % (11.5-14.5)
[2024-10-26] MEDS: PROTONIX IV 40 MG IV (08:07)
[2024-10-26] MEDS: NSS (PRESERVATIVE FREE) 10 ML IV (08:07)
[2024-10-26] MEDS: LASIX 20 MG PO (08:08)
[2024-10-26] MEDS: COREG 6.25 MG PO (08:08)
[2024-10-26] MEDS: VITAMIN C 1000 MG PO (08:17)
--- NOTE | 2024-10-26 08:32 | W.PN.HOSP.TC ---
Addendum entered and electronically signed by Domenico Pham MD 10/26/24 22:51:
Attending Addendum-
I saw and evaluated the patient. I reviewed the resident�s note and agree with findings and plan as documented in the resident�s note. Sub: Seen in pacu post colon. No complaints. Groggy due to anesthesia. no bloody bms reported. Very pleasant
Full 12 point ROS reviewed and negative except as documented Exam: Vitals reviewed in chart GEN-NAD heart RRR lungs clear abd soft NT ND pos BS LE no edema
Plan:
#Acute on chronic lower GI bleed
- no overt bleeding
- H&H stable
- appreciate GI input
- colon 10/25-13 polyps removed and sent for path
- repeat colonoscopy 10/26 - to remove remaining polyps- sent for path
- Hold Xarelto restart 5 days post procedure per GI
#DARWIN
-Monitor H&H
-cont IV iron while in house
-Transfuse for Hgb less than 7
#Paroxysmal atrial fibrillation
-Continue rate control with Coreg
-Hold anticoagulation with Xarelto 5 days post procedure
#CAD s/p stents
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
#Ischemic cardiomyopathy
#HFrEF
- not in AE
- Echo- 03/2023- EF 30-35%
- Continue Coreg
- d/w primary cards re starting GDMT on DC
- Continue home Lasix
#Hyperlipidemia
-Continue atorvastatin
CODE STATUS DNR
DVT prophylaxis SCDs for now
Dispo DC home post procedure
Time spent coordinating care, DC planning, review of DC plan of care with resident, transition of care, review of records, med rec/scripts sent electronically, consults, notes, d/w consultants, nursing, family, and CM� 32 mins >50% of this time was
devoted to counseling and coordination of care
Original Note:
Today's Communication/Plan
-
Colonoscopy today to excise more polyps
Continue monitoring for any blood in stool
Likely discharge today in the afternoon
Assessment / Plan
Assessment / Plan
Assessment:
84-year-old male with a past medical history of CAD/VT status post stents, paroxysmal A-fib on Xarelto, ischemic cardiomyopathy, hyperlipidemia, and colonic polyps presented to the ED due to significant bright red rectal bleeding yesterday morning.
He has had a history of intermittent rectal bleeding however at this time it was much more. He has not had any further bowel movement since. In the ED his hemoglobin was around 10.7. Xarelto was held, started on IV pantoprazole, and was seen by
GI. Patient underwent colonoscopy yesterday which removed around 13 large polyps with another scheduled for today to remove 3 further.
Plan:
#Acute blood loss anemia due to lower GI bleed:
-GI following, input appreciated
-Continue IV Protonix
-Hemoglobin has remained stable, today was 10.8
-Transfuse Hgb<7
-Continue checking CBC, monitor for any blood in stool
-Had colonoscopy yesterday which showed 13 large polyps which were removed successfully
-Plan for another colonoscopy today to remove 3 leftover polyps
- As per GI, will have to wait at least 4 days to resume anticoagulation. But patient may not even need anticoagulation depending on what cardiology has to say
# Iron deficiency anemia
-Received iron infusion
-Continue PO iron supplementation
#CAD/VT s/p stents
-Holding Xarelto, will continue statin and Metoprolol
-Patient may not even need Xarelto in the future, will have to reach out to cardiology
#Systolic CHFrEF
-Reviewed old Cardiology note from Jan 2024, systolic HF noted with reduced EF (30-35%)
-Continue Lasix and BB
#Proxysmal A-Fib
-Continue Metoprolol
-Holding Xarelto
#Hyperlipidemia
-Continue Statin
Code Status: DNR
DVT Prophylaxis: SCDs
Anticipated Discharge: Today
Subjective/Interval History
-
Date of Service: October 26, 2024
Patient seen this morning, was resting comfortably in his bed. Patient had no acute concerns or issues. Has not noticed any increased rectal bleeding following his colonoscopy yesterday. Going forward to getting the colonoscopy finished today and
going home. Does not report any fevers, lightheadedness, chills, increased swelling. Has not had any abdominal pain or any vomiting.
Objective Data
-
Labs:
Laboratory Results
10/26/24
06:41
WBC 6.6
Hgb 10.8 L
Hct 33.7 L
Plt Count 190
Sodium Pending
Potassium Pending
Chloride Pending
Carbon Dioxide Pending
BUN Pending
Creatinine Pending
Glucose Pending
Calcium Pending
Vital Signs:
Vital Signs
Temp Pulse Resp BP Pulse Ox
98.3 F 66 12 134/60 97
10/26/24 07:00 10/26/24 07:00 10/26/24 07:00 10/26/24 08:08 10/26/24 07:00
I&O
10/25/24 10/26/24 10/27/24
06:59 06:59 06:59
Intake Total 4440 / 4440
Balance 4440 / 4440
Review of Systems
-
History Source: Patient
Constitutional: Reports No Symptoms
EENT: Reports No Symptoms Reported
Respiratory: Reports No Symptoms
Cardiac: Reports No Symptoms
Abdomen/GI: Denies Abdominal Pain, Nausea or Vomiting
Musculoskeletal: Reports No Symptoms
Skin: Reports No Symptoms
Neuro: Reports No Symptoms
Endocrine: Reports No Symptoms
Hematologic / Lymphatic: Reports No Symptoms
Allergy / Immunology: Reports No Symptoms
Physical Exam
-
General: Well Developed, No Apparent Distress and Comfortable
HEENT: Normocephalic, Atraumatic and Moist Mucous Membranes
Respiratory: Clear to Auscultation
Cardiac: Regular Rhythm and S1/S2; Negative Murmur
GI: Soft, Nontender, Nondistended and Normal Bowel Sounds
Musculoskeletal: No Clubbing, No Cyanosis and No Edema
Skin: Negative Rash
Neuro: Awake, Alert, Oriented and AO x 3
Psych: Calm
Data Reviewed
-
Labs: Labs Reviewed by me, Discussed with Physician and Discussed with Patient
[2024-10-26 08:34] LABS: Blood Urea Nitrogen 7 mg/dl (9-20); Calcium 9.5 mg/dl (8.4-10.2); Carbon Dioxide 23 mmol/L (22-30); Chloride 111 mmol/L (98-107); Estimated Creatinine Clearance 52 ml/min; Glucose 88 mg/dl (70-99); Potassium 4.2 mmol/L (3.5-5.1); Sodium 138 mmol/L (135-145); eGFR > 60.00
--- NOTE | 2024-10-26 15:34 | W.PN.UPDATE ---
Update Note
Progress Note Update
Patient had successful colonoscopy with multiple polyps removed. Patient seen afterwards with his daughter in the room and was a bit tired but overall felt good. Will be discharging him today with instructions to follow up with GI and Cardiology in
the outpatient setting
--- NOTE | 2024-10-26 15:39 | W.DCSUMMARY ---
Addendum entered and electronically signed by Domenico Pham MD 10/26/24 22:52:
Read, reviewed, and agree. See same day progress note for additional details.
Yared Pham MD
Original Note:
Documented by User: Alyssa Wallace MD, Resident 10/26/24 16:02
Discharge Summary
Discharge Data
Date of Admission: 10/23/24
Date of Discharge: 10/26/24
-
Pending Results: Yes
Additional Pending Results:
Pathology results post Colonoscopy (Please follow up with GI in outpatient setting for results)
Hospital Course
Discharging Physician : Dr. Alyssa Wallace, Dr. Domenico Pham
Disposition : Home
Primary care physician : Lexie Rueda MD
Principal Discharge diagnosis :
Acute on chronic lower GI bleed
Chronic Discharge diagnosis :
Iron deficiency anemia
Paroxysmal A-fib
CHFrEF
Hyperlipidemia
CAD s/p stents
Hospital Course :
84-year-old male with a past medical history of CAD/ME status post stents, paroxysmal A-fib on Xarelto, ischemic cardiomyopathy, hyperlipidemia, and colonic polyps presented to the ED due to significant bright red rectal bleeding. He has had a
history of intermittent rectal bleeding however at this time it was much more. In the ED his hemoglobin was around 10.7. Xarelto was held, started on IV pantoprazole, and was seen by GI. Patient underwent colonoscopy which removed around 13 large
polyps with another colonoscopy the following day which removed even more polyps. Patient tolerated the procedures well and had no further rectal bleeding while at the hospital. He had some Iron deficiency anemia which was treated with IV iron
supplementation. His chronic heart disease may not be managed well and he will need to start on Guideline-Directed Medical Therapy (GDMT). We gave him instructions for him to follow up with Dr. Damon, his adult basic education teacher regarding future anticoagulation
therapy for his A-Fib and therapy for his heart failure. He has to hold his Xarelto for 4 days post Colonoscopy but needs to speak to Dr. Damon about potentially not restarting it at all. He will also need to follow up with GI to go over results of
his pathology from the colonoscopy and for secondary Colonoscopy in 6 months.
Procedure findings :
Colonoscopy (10/26/2024)
- One 15 mm polyp in the ascending colon. Resected and retrieved.
- Three 3 to 5 mm polyps in the distal ascending colon, removed
with a cold snare. Resected and retrieved.
- One 10 mm polyp at the hepatic flexure, removed with a cold
snare. Resected and retrieved.
- One 15 mm polyp in the distal sigmoid colon, removed with a hot
snare. Resected and retrieved.
Colonoscopy (10/25/2024)
- One large (2 cm or greater) polyp in the mid ascending colon. Not
removed - needs EMR
- Six 8 to 15 mm polyps in the ascending colon, removed with a cold
snare. Resected and retrieved.
- One large (1 cm or greater) polyp in the ascending colon.
Resected and retrieved. Treated with argon plasma coagulation (APC)
- Three large (1 cm or greater) polyps in the transverse colon,
removed with a cold snare. Resected and retrieved.
- One large (1 cm or greater) polyp in the proximal transverse
colon. Not removed
- Two 8 to 15 mm polyps at 30 cm proximal to the anus, removed with
a hot snare. Resected and retrieved.
- One large (1 cm or greater) polyp at 25 cm proximal to the anus,
removed with a hot snare. Resected and retrieved.
- One large (1 cm or greater) polyp in the rectum, removed with a
hot snare. Resected and retrieved.
- One large (1 cm or greater) polyp at 18 cm proximal to the anus.
Biopsied. Will need removed
- The examined portion of the ileum was normal.
Discharge Plan
-
Patient Disposition: Home (Routine Discharge)
Discharge Diagnosis/Procedures: Acute on chronic lower GI bleed
Iron deficiency anemia
Paroxysmal A-fib
CHFrEF
Hyperlipidemia
Condition: Good
Diet: Low Cholesterol
Activity: As tolerated
Driving Restrictions: As prior to admission
Bathing Restrictions: None
Referrals:
Uziel Damon MD [Active, Cardiology] - in one to two weeks
Referral Note: Please follow up with Cardiology regarding your heart failure medication as well as your anticoagulation
Lexie Rueda MD [Family Provider, Family Practice] - in less than 1 week
Referral Note: Please follow up with your PCP within 1 week
Codi Gerber DO [Active, Gastroenterology] - in one to two weeks
Referral Note: Please follow-up with gastroenterology as discussed
Additional Discharge Medication Instructions: Your Xarelto was stopped, please follow up with your adult basic education teacher regarding starting the medication
Please resume your previous blood pressure medications from before the hospitalization
Please follow up with GI as discussed following your discharge
Prescriptions:
Continued
multivitamin [Hes-Uzlquv-Emefi] 1 EACH tablet
1 tab PO DAILY
ascorbic acid (vitamin C) [Vitamin C] 1,000 MG tablet
1,000 mg PO DAILY
coenzyme [id number] E 1 CAP capsule
1 cap PO DAILY
Prostate Health 1 EACH tablet
1 tab PO DAILY
atorvastatin 80 MG tablet
80 mg PO QPM Qty: 30 3RF
pantoprazole 40 MG tablet,delayed release (DR/EC)
40 mg PO DAILY Qty: 30 0RF
nitroglycerin 0.4 MG tablet, sublingual
0.4 mg sublingual [id number] PRN (Reason: chest pain ) 30 Days Qty: 25 0RF
Patient Comments:
took 2 doses about 30 mins apart 12/22/17
furosemide [Lasix] 20 MG tablet
20 mg PO DAILY 30 Days Qty: 30 5RF
carvedilol 12.5 mg tablet
12.5 mg PO BID
lisinopril 20 mg tablet
20 mg PO DAILY
Discontinued
Xarelto 20 mg tablet
20 mg PO DAILY
Discharge Orders:
Discharge Patient (As Directed); Ordered 10/26/24
Ordered By: Alyssa Wallace
Discharge Date and Time
Discharge Date/Time: 10/26/24 17:13
Print Language: GERMAN

Documented by User: Domenico Pham MD 10/26/24 22:46
Discharge Summary
Discharge Data
Date of Admission: 10/23/24
Date of Discharge: 10/26/24
Discharge Plan
-
Patient Disposition: Home (Routine Discharge)
Discharge Diagnosis/Procedures: Acute on chronic lower GI bleed
Iron deficiency anemia
Paroxysmal A-fib
CHFrEF
Hyperlipidemia
Condition: Good
Diet: Low Cholesterol
Activity: As tolerated
Driving Restrictions: As prior to admission
Bathing Restrictions: None
Referrals:
Uziel Damon MD [Active, Cardiology] - in one to two weeks
Referral Note: Please follow up with Cardiology regarding your heart failure medication as well as your anticoagulation
Lexie Rueda MD [Family Provider, Family Practice] - in less than 1 week
Referral Note: Please follow up with your PCP within 1 week
Codi Gerber DO [Active, Gastroenterology] - in one to two weeks
Referral Note: Please follow-up with gastroenterology as discussed
Additional Discharge Medication Instructions: Your Xarelto was stopped, please follow up with your adult basic education teacher regarding starting the medication
Please resume your previous blood pressure medications from before the hospitalization
Please follow up with GI as discussed following your discharge
Prescriptions:
Continued
multivitamin [Byt-Peaalx-Zdubk] 1 EACH tablet
1 tab PO DAILY
ascorbic acid (vitamin C) [Vitamin C] 1,000 MG tablet
1,000 mg PO DAILY
coenzyme [id number]-[id number] E 1 CAP capsule
1 cap PO DAILY
Prostate Health 1 EACH tablet
1 tab PO DAILY
atorvastatin 80 MG tablet
80 mg PO QPM Qty: 30 3RF
pantoprazole 40 MG tablet,delayed release (DR/EC)
40 mg PO DAILY Qty: 30 0RF
nitroglycerin 0.4 MG tablet, sublingual
0.4 mg sublingual [id number] PRN (Reason: chest pain ) 30 Days Qty: 25 0RF
Patient Comments:
took 2 doses about 30 mins apart 12/22/17
furosemide [Lasix] 20 MG tablet
20 mg PO DAILY 30 Days Qty: 30 5RF
carvedilol 12.5 mg tablet
12.5 mg PO BID
lisinopril 20 mg tablet
20 mg PO DAILY
Discontinued
Xarelto 20 mg tablet
20 mg PO DAILY
Discharge Orders:
Discharge Patient (As Directed); Ordered 10/26/24
Ordered By: Alyssa Wallace
Discharge Date and Time
Discharge Date/Time: 10/26/24 17:13
Print Language: GERMAN
--- NOTE | 2024-10-28 12:50 | PN.CDI ---
CDI
- -
CDI:
Physician Documentation Request
Admit Date: 10/23/24 12:05
Dear Doctor Jules,
Clinical Indicators:
Patient admitted with acute lower GI bleeding.
10/26 Colonoscopy: 'A 15 mm polyp was found in the distal sigmoid colon. The polyp was pedunculated.'
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
Please indicate in progress notes if you are in agreement that the above diagnosis is valid for this patient:
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
Sigmoid colon adenocarcinoma is not a valid diagnosis for this patient.
Other
Use of terms such as suspected, likely, concern for, or probable (associated with a specific diagnosis that is being evaluated, monitored, or treated as if it exists) are acceptable and can be coded in the inpatient setting, when documented at the
time of discharge.
Thank you,
ARSH Anna RN
CDI Specialist
available via tiger text
Please use your independent medical judgment in providing your response.
--- NOTE | 2024-11-09 16:04 | W.PN.UPDATE ---
Update Note
Progress Note Update
This entry is to answer CDI query
Path from colonoscopy/polyp resection showed adenocarcinoma, which is a correct diagnosis.
== END 2024-10-26 17:13 | disposition home or self-care (01) | DRG 375 ==
LOC: 4 EAST ACU 12:05
PROVIDERS: Internal Medicine; Internal Medicine Gastroenterology; Student in an Organized Health Care Education/Training Program; ADMITTING PHYSICIAN Internal Medicine; ATTENDING PHYSICIAN Family Medicine; CONSULT PHYSICIAN Specialist; EMERGENCY PHYSICIAN Emergency Medicine; FAMILY PHYSICIAN Family Medicine
PROC: 0DBP8ZZ Excision of Rectum, Via Natural or Artificial Opening Endoscopic (ICD-10-PCS; 2024-10-25)
PROC: 0DBL8ZZ Excision of Transverse Colon, Via Natural or Artificial Opening Endoscopic (ICD-10-PCS; 2024-10-25)
PROC: 0DBP8ZX Excision of Rectum, Via Natural or Artificial Opening Endoscopic, Diagnostic (ICD-10-PCS; 2024-10-25)
PROC: 0DBK8ZZ Excision of Ascending Colon, Via Natural or Artificial Opening Endoscopic (ICD-10-PCS; 2024-10-25)
PROC: 0DBN8ZZ Excision of Sigmoid Colon, Via Natural or Artificial Opening Endoscopic (ICD-10-PCS; 2024-10-26)
DX: C18.7 Malignant neoplasm of sigmoid colon (principal); D62 Acute posthemorrhagic anemia; D68.32 Hemorrhagic disorder due to extrinsic circulating anticoagulants; I50.22 Chronic systolic (congestive) heart failure; K92.1 Melena; D12.3 Benign neoplasm of transverse colon; I25.10 Atherosclerotic heart disease of native coronary artery without angina pectoris; I25.2 Old myocardial infarction; I48.0 Paroxysmal atrial fibrillation; I25.5 Ischemic cardiomyopathy; E78.5 Hyperlipidemia, unspecified; Z66 Do not resuscitate; T45.515A Adverse effect of anticoagulants, initial encounter; Z95.5 Presence of coronary angioplasty implant and graft; D12.2 Benign neoplasm of ascending colon; D12.8 Benign neoplasm of rectum; K64.1 Second degree hemorrhoids; N40.0 Benign prostatic hyperplasia without lower urinary tract symptoms; Z79.899 Other long term (current) drug therapy; Z79.01 Long term (current) use of anticoagulants; Z79.02 Long term (current) use of antithrombotics/antiplatelets
CPT/HCPCS: 80048; 80053; 82728; 83540; 83550; 85014; 85018; 85025; 85027; 85045; 85610; 85730; 86850; 86900; 86901; 88305; 88342; 97161; 99285; J2916

== ENCOUNTER → 2024-11-10 07:47 | Outpatient (REF) | payer MEDICARE, SELFPAY | LOC: WOUND 07:47 | PROVIDERS: ATTENDING PHYSICIAN Surgery; FAMILY PHYSICIAN Family Medicine | DX: L97.512 Non-pressure chronic ulcer of other part of right foot with fat layer exposed (principal); I25.2 Old myocardial infarction; I50.22 Chronic systolic (congestive) heart failure; I25.10 Atherosclerotic heart disease of native coronary artery without angina pectoris | CPT/HCPCS: 11042; 73630; 99204 ==

== ENCOUNTER → 2024-11-15 10:44 | Outpatient (REF) | payer MEDICARE, SELFPAY ==
[2024-11-15 12:11] LABS: Hematocrit 31.5 % (39.0-52.0); Hemoglobin 10.2 g/dL (13.0-18.0); Mean Corp Hgb Conc. 32.4 g/dL (33.0-37.0); Mean Corpuscular Volume 77.0 fL (80.0-94.0); Nucleated Red Blood Cells % 0 % (-); Platelet Count 189 10^3/uL (130-400); Red Cell Dist. Width 18.8 % (11.5-14.5)
[2024-11-15 12:26] LABS: ALT (SGPT) 23 U/L (0-50); AST (SGOT) 29 U/L (17-59); Albumin 3.8 g/dl (3.5-5.0); Alkaline Phosphatase 71 U/L (38-126); Blood Urea Nitrogen 18 mg/dl (9-20); Calcium 9.8 mg/dl (8.4-10.2); Carbon Dioxide 26 mmol/L (22-30); Chloride 110 mmol/L (98-107); Glucose 102 mg/dl (70-99); Potassium 4.5 mmol/L (3.5-5.1); Sodium 142 mmol/L (135-145); Total Protein 6.3 g/dl (6.3-8.2); eGFR > 60.00
[2024-11-15 12:54] LABS: CEA 1.66 ng/ml
== END ==
LOC: REG 10:44
PROVIDERS: ATTENDING PHYSICIAN Surgery; FAMILY PHYSICIAN Family Medicine
DX: C18.7 Malignant neoplasm of sigmoid colon (principal)
CPT/HCPCS: 36415; 80053; 82378; 85025

== ENCOUNTER 2024-11-16 06:18 | Day surgery (SDC) | payer MEDICARE, SELFPAY | END 2024-11-16 11:12 | disposition home or self-care (01) | LOC: GI 06:18 | PROVIDERS: ATTENDING PHYSICIAN Surgery | DX: Z12.11 Encounter for screening for malignant neoplasm of colon (principal); K57.30 Diverticulosis of large intestine without perforation or abscess without bleeding | CPT/HCPCS: G0104 ==

== ENCOUNTER → 2024-11-17 09:00 | Outpatient (REF) | payer MEDICARE, SELFPAY | LOC: WOUND 09:00 | PROVIDERS: ATTENDING PHYSICIAN Surgery; FAMILY PHYSICIAN Family Medicine | DX: L97.512 Non-pressure chronic ulcer of other part of right foot with fat layer exposed (principal) | CPT/HCPCS: 99212 ==

== ENCOUNTER → 2024-11-22 12:35 | Outpatient (REF) | payer MEDICARE, SELFPAY | LOC: RAD 12:35 | PROVIDERS: ATTENDING PHYSICIAN Surgery; FAMILY PHYSICIAN Family Medicine | DX: C18.7 Malignant neoplasm of sigmoid colon (principal) | CPT/HCPCS: 71260; 74177; Q9967 ==

== ENCOUNTER → 2024-12-22 08:48 | Outpatient (REF) | payer MEDICARE, SELFPAY ==
[2024-12-22 10:20] LABS: Hematocrit 35.9 % (39.0-52.0); Hemoglobin 11.3 g/dL (13.0-18.0); Mean Corp Hgb Conc. 31.5 g/dL (33.0-37.0); Mean Corpuscular Volume 83.1 fL (80.0-94.0); Nucleated Red Blood Cells % 0 % (-); Platelet Count 210 10^3/uL (130-400); Red Cell Dist. Width 18.1 % (11.5-14.5)
[2024-12-22 10:47] LABS: ALT (SGPT) 21 U/L (0-50); AST (SGOT) 25 U/L (17-59); Albumin 3.8 g/dl (3.5-5.0); Alkaline Phosphatase 74 U/L (38-126); Blood Urea Nitrogen 21 mg/dl (9-20); Calcium 10.0 mg/dl (8.4-10.2); Carbon Dioxide 27 mmol/L (22-30); Chloride 110 mmol/L (98-107); Glucose 106 mg/dl (70-99); HDL Cholesterol 52 mg/dl; Iron 37 ug/dl (49-181); LDL Cholesterol, Calculated 70 mg/dl; Potassium 4.5 mmol/L (3.5-5.1); Sodium 138 mmol/L (135-145); Total Protein 6.5 g/dl (6.3-8.2); Very Low Density Lipoprotein 11 mg/dl (0-30); eGFR > 60.00
== END ==
LOC: REG 08:48
PROVIDERS: ATTENDING PHYSICIAN Family Medicine
DX: K92.2 Gastrointestinal hemorrhage, unspecified (principal); D50.0 Iron deficiency anemia secondary to blood loss (chronic); E78.5 Hyperlipidemia, unspecified
CPT/HCPCS: 36415; 80053; 80061; 83540; 84443; 85025